=== PATIENT | male | born 1975 | race African-American/Black ===

== ENCOUNTER 2017-06-16 12:07 | Emergency (ER) | payer OTHER ==
[~2017-06-16] VITALS: Ht 188 cm; Wt 75.5 kg
[~2017-06-16 12:07] MED LIST: NOHOMEMEDS
[2017-06-16] MEDS ORDERED: TAMIFLU75 MG PO (13:57)
[2017-06-16] MEDS ORDERED: MOTRIN600 MG PO (13:57)
[2017-06-16 14:21] VITALS: BP 139/66
== END 2017-06-16 14:22 | disposition home or self-care (01) ==
LOC: EME 12:07
DX: J10.1 Influenza due to other identified influenza virus with other respiratory manifestations (principal); F17.200 Nicotine dependence, unspecified, uncomplicated; Z88.0 Allergy status to penicillin
CPT/HCPCS: 87502; 99281; 99283